=== PATIENT | male | born 1965 | race Caucasian/White ===

== ENCOUNTER → 2024-04-21 13:42 | Outpatient (REF) | payer OTHER, SELFPAY ==
--- NOTE | 2024-04-21 15:11 | CARDSERVLU ---
Echocardiogram with Lumason completed after protocol screening completed. Allergies verified.
Patent IV site: ___new start 2nd attempt 24P R hand__
IV site flushed with 0.9% NaCl pre and post administration.
Diluted bolus method utilized to enhance visualization of ventricular cameron.
Total volume given: __3.5__ mL
site dcd at completion of test.
Patient tolerated all procedures well without complications.
== END ==
LOC: RCS 13:42
PROVIDERS: ATTENDING PHYSICIAN Internal Medicine Cardiovascular Disease; FAMILY PHYSICIAN Nurse Practitioner Adult Health
DX: I42.9 Cardiomyopathy, unspecified (principal); I07.1 Rheumatic tricuspid insufficiency
CPT/HCPCS: 93306; Q9950